=== PATIENT | male | born 2005 | race Two or more races ===

== ENCOUNTER → 2025-03-17 | Emergency (ER) | payer OTHER ==
[~2025-03-17] VITALS: Ht 167.6 cm; Wt 88.5 kg
== END | disposition home or self-care (01) ==
LOC: ER 16:06
DX: S60.051A Contusion of right little finger without damage to nail, initial encounter (principal); X58.XXXA Exposure to other specified factors, initial encounter; Y93.89 Activity, other specified; Y92.89 Other specified places as the place of occurrence of the external cause; Y99.9 Unspecified external cause status; M20.091 Other deformity of right finger(s)